=== PATIENT | male | born 1965 | race Caucasian/White ===

== ENCOUNTER 2019-11-28 13:51 | Outpatient (REF) | payer BC, SELFPAY ==
--- NOTE | 2019-11-28 14:00 | CT_ITS ---
EXAMINATION: CT ABDOMEN AND PELVIS WITHOUT AND WITH CONTRAST CLINICAL INFORMATION: Renal cell carcinoma, follow-up. COMPARISON: CT scan of the abdomen and pelvis dated 06/28/2018. TECHNIQUE: Multidetector volumetric imaging was performed of the abdomen and pelvis before and after the IV administration of 85 mL of Omnipaque 350 intravenous contrast. Sagittal and coronal reformatted images were obtained on the technologist's workstation. This CT examination was performed using dose optimization techniques as appropriate, variously including the following: *Automated exposure control *Adjustment of mA and/or kV according to patient size (this includes techniques or standardized protocols for targeted exams where dose is matched to indication/reason for exam; i.e. extremities or head) *Use of iterative reconstruction technique DLP: 796 mGy-cm FINDINGS: LUNG BASES: The visualized lung bases are unremarkable. LIVER, GALLBLADDER, AND BILIARY TREE: Several low-attenuation foci in the liver, some which are too small adequately characterize are not significantly changed. One of the largest is seen anteriorly measuring 0.8 cm without significant change when remeasured (image 12, series 4). The gallbladder/biliary tree are unremarkable. PANCREAS: Unremarkable SPLEEN: Unremarkable ADRENAL GLANDS: Unremarkable KIDNEYS AND URETERS: Status post left nephrectomy. Postsurgical changes are seen in the left renal fossa without abnormality. The right kidney and proximal ureter are unremarkable. BLADDER: Unremarkable GASTROINTESTINAL TRACT: The stomach and small bowel unremarkable. There is no evidence for acute appendicitis. A few scattered diverticuli are seen within the colon without surrounding abnormality. ABDOMINAL WALL: No significant hernia is appreciated. LYMPH NODES: Mildly prominent enlarged retroperitoneal again seen without significant change. A manufacturer representative nodule in the left periaortic region measures a 0.8 cm in short axis (image 52, series 6). VASCULAR: Mild atherosclerosis without significant ectasia. PELVIC VISCERA: Mild prostatic enlargement minimally indenting the inferior wall the urinary bladder without significant change. OSSEOUS STRUCTURES: Multilevel degenerative changes in the thoracolumbar spine, most pronounced at L5-S1 without significant change or suspicious abnormality. IMPRESSION: 1. No significant interval change. No evidence for residual or recurrent disease.
== END 2019-11-28 13:52 | disposition home or self-care (01) ==
LOC: HO.CT 13:51
PROVIDERS: Visit Provider Urology
DX: C64.9 Malignant neoplasm of unspecified kidney, except renal pelvis (principal)
CPT/HCPCS: 74178

== ENCOUNTER → 2020-01-17 10:30 | Outpatient (BNVA) | payer BC, SELFPAY | PROVIDERS: Visit Provider Urology | DX: Z76.89 Persons encountering health services in other specified circumstances (principal) ==

== ENCOUNTER 2020-06-25 09:28 | Outpatient (REF) | payer BC, SELFPAY ==
--- NOTE | ~2020-06-25 | US_ITS ---
EXAMINATION: US RETROPERITONEAL LIMITED (RENAL ONLY) CLINICAL INFORMATION: Malignant neoplasm of kidney. COMPARISON: CT abdomen and pelvis 11/28/2019. Ultrasound renals 12/23/2018 and 07/02/2017. MRI abdomen 07/09/2016. TECHNIQUE: Real-time imaging of the kidneys. FINDINGS: RIGHT KIDNEY: 11.5 x 6.4 x 6.6 cm (SAG x AP x TRV). The kidney is normal in size, contour, and echogenicity. Renal cortical thickness is normal. No calculi or focal parenchymal lesions. No hydronephrosis. LEFT KIDNEY: Removed. US/US renal BI IMPRESSION: Unremarkable right kidney. The left kidney has been surgically removed.
== END 2020-06-25 09:29 | disposition home or self-care (01) ==
LOC: HO.US 09:28
PROVIDERS: Visit Provider Urology
DX: C64.9 Malignant neoplasm of unspecified kidney, except renal pelvis (principal)
CPT/HCPCS: 76775

== ENCOUNTER → 2020-08-01 13:38 | Outpatient (BNVA) | payer BC, SELFPAY | PROVIDERS: PCP Psychiatry & Neurology Psychiatry; Visit Provider Urology ==

== ENCOUNTER 2021-01-11 12:53 | Outpatient (REF) | payer BC, SELFPAY ==
--- NOTE | ~2021-01-11 | XR_ITS ---
EXAMINATION: XR ABDOMEN KUB CLINICAL INDICATION: Malignant neoplasm of the kidney COMPARISON: Previous renal ultrasound June [address] of the abdomen and pelvis November 2019 TECHNIQUE: AP view of the abdomen. FINDINGS: There is stool throughout the colon suggestive of constipation. There are surgical clips projecting over the left renal fossa from previous left nephrectomy. No calcifications are seen. There are degenerative changes of the spine. There is a soft tissue calcification adjacent to the left greater trochanter. XR/XR KUB IMPRESSION: Surgical clips from previous left nephrectomy. Constipation.
== END 2021-01-11 12:54 | disposition home or self-care (01) ==
LOC: HO.XRAY 12:53
PROVIDERS: PCP Internal Medicine; Visit Provider Urology
DX: C64.9 Malignant neoplasm of unspecified kidney, except renal pelvis (principal)
CPT/HCPCS: 74018

== ENCOUNTER → 2021-01-29 14:57 | Outpatient (BNVA) | payer BC, SELFPAY | PROVIDERS: PCP Psychiatry & Neurology Psychiatry; Visit Provider Urology ==

== ENCOUNTER 2021-07-29 16:17 | Outpatient (REF) | payer BC, SELFPAY ==
--- NOTE | ~2021-07-29 | US_ITS ---
EXAMINATION: US RETROPERITONEAL LIMITED (RENAL ONLY) CLINICAL INFORMATION: Malignant neoplasm of unspecified kidney. Post left nephrectomy 2016 COMPARISON: X-ray KUB 01/11/2021, renal ultrasound 06/25/2020, renal ultrasound 12/23/2018, CT abdomen and pelvis 11/28/2019, MRI abdomen 07/09/2016 TECHNIQUE: Real-time imaging of the kidney. FINDINGS: RIGHT KIDNEY: 11.5 x 5.9 x 6.6 cm (SAG x AP x TRV). The kidney is normal in size, contour, and echogenicity. Renal cortical thickness is normal. No calculi or focal parenchymal lesions. No hydronephrosis. LEFT KIDNEY: Surgically absent. No soft tissue mass is seen in the left renal fossa. US/US renal BI IMPRESSION: Normal right kidney.
== END 2021-07-29 16:18 | disposition home or self-care (01) ==
LOC: HO.US 16:17
PROVIDERS: Visit Provider Urology
DX: C64.9 Malignant neoplasm of unspecified kidney, except renal pelvis (principal); Z90.5 Acquired absence of kidney
CPT/HCPCS: 76775

== ENCOUNTER 2021-11-23 12:18 | Emergency (ER) | payer BC, SELFPAY ==
[2021-11-23 12:24] VITALS: BP 160/96; PULSE 73; RESP 18; TEMP 36.8; O2SAT 98; BMI 27.8
[2021-11-23 12:51] VITALS: BP 148/96; PULSE 65; RESP 14; TEMP 36.6; O2SAT 92
--- NOTE | 2021-11-23 13:04 | ED.GENADULT ---
HPI - General Adult General Chief complaint: General Medical Stated complaint: Diff Breathing Time Seen by Provider: 11/23/21 12:45 Source: patient Mode of arrival: ambulatory Limitations: no limitations History of Present Illness HPI narrative: 56 year old male with a PMH significant for asthma, renal cancer, MD (2012) and HTN, he presenting for difficulty breathing, and heart burn. 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 The patient has a history of heroin use and is currently on suboxone. The patient reports one hour ago he snorted heroin, and he thought he might've been overdosing. He reports after using he experiences this heart burn and it goes away with Pepcid, and does not radiate anywhere. He report he is not currently experiencing this burning sensation. The patient endorses dyspnea, wheezing and heart burn. He denies chest pain, pleuritic chest pain, or radiating pain. MD complaint: Drug uses with heartburn/shortness of breath/wheezing Onset (ago): hour(s) (1) Location: abdomen Radiation: non-radiation Severity: mild Quality: burning Pain Consistency: intermittent (with heroin use ) Relieving factors: other (pepcid ) Associated symptoms: shortness of breath Treatments prior to arrival: none Related Data Home Medications Medication Instructions Recorded Confirmed albuterol sulfate 90 mcg/actuation 1 puff PO Q6H PRN wheezing 01/17/20 aerosol inhaler atorvastatin 80 mg tablet 80 mg PO DAILY 01/17/20 buprenorphine 8 mg-naloxone 2 mg 10 mg sublingual DAILY 01/17/20 sublingual film clonidine HCl 0.1 mg tablet mg PO 01/17/20 famotidine 20 mg tablet 20 mg PO Q12H 01/17/20 ipratropium 0.5 mg-albuterol 3 mg ml inhalation QID PRN wheezing 01/17/20 (2.5 mg base)/3 mL nebulization soln lisinopril 10 mg tablet 10 mg PO DAILY 01/17/20 metoprolol tartrate 50 mg tablet 50 mg PO BID 01/17/20 sildenafil 100 mg tablet 100 mg PO intercourse 01/17/20 Previous Rx's Medication Instructions Recorded sildenafil (pulm.hypertension) 20 20 mg PO .PRN PRN sexual activity 11/19/21 mg tablet 30 days #30 tabs albuterol sulfate 90 mcg/actuation 1 inh inhalation Q4-6H PRN 11/23/21 breath activated powder inhaler shortness of breath or wheezing #1 ea azithromycin 250 mg tablet See Rx Instructions PO .COMPLEX #6 11/23/21 tabs famotidine 20 mg tablet (Pepcid) 20 mg PO BID gerd #10 tabs 11/23/21 prednisone 20 mg tablet 40 mg PO DAILY Asthma exacerbation 11/23/21 5 days #10 tabs Allergies Allergy/AdvReac Type Severity Reaction Status Date / Time No Known Allergies Allergy Verified 08/20/21 07:36 Review of Systems Review of Systems: Constitutional : No Fever, No Chills, No Night Sweats, No Fatigue, No Malaise ENT/Mouth : No Hearing loss, No Ear Pain, No Nasal Congestion, No Sinus Pain, No Hoarseness, No sore throat, No Rhinorrhea, No Swallowing Difficulty Eyes: No Eye Pain, No Swelling, No Redness, No Foreign Body, No Discharge, No Vision Changes Cardiovascular : No Chest Pain, No SOB, + Dyspnea on Exertion, No Orthopnea, No Edema, No Palpitations Respiratory : No Cough, No Sputum, + Wheezing, No Smoke Exposure, No Dyspnea Gastrointestinal : No Nausea, No Vomiting, No Diarrhea, No Constipation, No abdominal Pain, No Hematochezia, No Melena Genitourinary : no irregular bleeding, No Dysuria, No Urinary Frequency, No Hematuria, No Urinary Incontinence, No Urgency, No Flank Pain, No Urinary Flow Changes, No Hesitancy Musculoskeletal : No joint pain, No Myalgias, No Joint Swelling Skin : No Skin Lesions, No rash Neuro : No Weakness, No Numbness, No Paresthesias, No Loss of Consciousness, No Dizziness, No Headache Psych : + Anxiety/Panic Heme/Lymph: No Bruising, No Bleeding,No Lymphadenopathy Endocrine : No Polyuria, No Polydipsia, No Temperature Intolerance Yes all other systems are reviewed and are negative [facility] Past Medical History Attestation statement: The following information was validated with the patient. Source: old records reviewed and nursing notes reviewed Medical History Accelerated hypertension Erectile dysfunction Hyperlipidemia Renal cancer Surgical History History of surgery Social History Social History Advance Directives: Yes Advance Directives Information Provided: No Advance Directives on File: No Physical Exam ED Vital Signs: Vital Signs - 24 hr 11/23/21 12:24 11/23/21 12:51 11/23/21 14:08 Temperature 98.2 F 97.8 F 97.7 F Pulse Rate 73 65 63 Respiratory Rate 18 14 93 H Blood Pressure 160/96 H 148/96 H 135/85 Pulse Oximetry 98 92 94 Oxygen Delivery Method Room Air Room Air Room Air 11/23/21 15:10 Temperature Pulse Rate 73 Respiratory Rate 16 Blood Pressure Pulse Oximetry Oxygen Delivery Method BMI result Body Mass Index 27.8 vital signs have been reviewed as normal and appeared to be correct. Blood pressure 160/96. Heart rate normal. Respiration rate normal. Temperature normal. Oxygen saturation normal. Appearance: Alert. Oriented X3. No acute distress. Head: Normal external exam. Normocephalic. Atraumatic. Eyes: Pinpoint fixed pupiles b/t. EOMI. Conjunctiva and sclera normal. Eyelids normal. ENT: Moist mucous membranes. Normal voice. No trismus noted. No drooling noted. No muffled voice noted. Neck: Normal inspection. Neck supple. FROM. No tracheal deviation noted. No crepitus is noted. No meningeal signs. No neck mass noted. No signs of trauma noted. CVS: Normal heart rate and rhythm. Heart sound normal. Pulses normal throughout. No murmurs/rales/gallops. Respiratory: No respiratory distress. Painless inspiration. Breath sounds normal. + audible wheezing, No stridor/rales/rhonchi noted. Chest nontender. No crepitus is noted. No signs of trauma noted. No accessory muscle usage noted or decreased air movement noted. No signs of trauma. Abdomen: Soft and nontender. No distention noted. No organomegaly noted. No visible injury noted. Back: No CVA tenderness. Full range of motion noted. Nontender. No signs of trauma. Patient neuro intact bilaterally and distally on all 4 extremities. Patient's reflexes intact bilaterally and distally on all 4 extremities. No rashes/lesion/induration/fluctuance or signs of infection noted. Skin: Skin warm and dry. Normal skin color. Normal skin turgor. No rashes/lesions/lacerations noted. Extremities: No lower extremity edema. No calf tenderness is noted. Extremities exhibit normal range of motion and nontender. Neuro: Oriented X 3. No motor deficit. No sensory deficit. Reflexes normal. Normal steady gait. No focal neuro deficits noted. CN's II-XII intact bilaterally? Vascular: + 2 radial pulses b/l. Normal cap refill. No cyanosis noted to upper extremity nails. Course Course Course Narrative: 12:45pm -56 year old male with a PMH significant for asthma, renal cancer, MD (2012) and HTN, he presenting for difficulty breathing, and heart burn. The patient has a history of heroin use and is currently on suboxone.The patient reports one hour ago he snorted heroin, and he though he was OD. He reports after using he experiences this heart burn and it goes away with Pepcid, and does not radiate anywhere. He report he is not currently experiencing this burning sensation. The patient endorses dyspnea, wheezing and heart burn. He denies chest pain, pleuritic chest pain, or radiating pain. Exam: Audible wheezing noted, pupils pinpoint and fixed. Plan:EKG, CXR, UA drug screen, PT/INR, Ethanol, CPK, CBC with diff, CMP, Troponin, Meds: Albuterol, Pepcid, Prednisone, Albuterol Reevaluation(s) Reevaluation #1: CXR offered and decliend by patient, patient states I don't need a chest x-ray, I don't have pneumonia Time: 13:31 Reevaluation #2: - labs reviewed and patient troponin 49.9. Otherwise all other labs are within normal limits. - ETOH level negative. - Patient continues to refuse chest x-ray. - EKG normal sinus rhythm with sinus arrhythmia with ventricular rate of 72 with a normal OH interval normal QRS duration with QT/QTC interval. No acute ischemic change are noted. Similar and improve when compared to prior EKG on 07/09/2016. Time: 16:59 Reevaluation #3: - Initial Troponin 49.9; 3 hour Troponin 42.4 therefore negative delta. - will DC home with antibiotics and symptomatic treatment for the patient's asthma/GERD. Along with instructions to not use any drugs. Patient is not interested in detox. Plan: d/c home Time: 18:00 Medical Decision Making Medical Records Medical records reviewed: Yes I reviewed the patient's medical records. Lab Data Lab results reviewed: Yes I reviewed the patient's lab results. Result diagrams: 11/23/21 13:30 11/23/21 13:30 Labs: Lab Results 11/23/21 11/23/21 11/23/21 Range/Units 13:30 13:30 13:30 WBC 9.0 (4.8-10.8) X10*3/uL RBC 5.31 (4.60-5.80) X10*6/uL Hgb 15.7 (14.0-18.0) g/dl Hct 47.4 (42.0-52.0) % MCV 89.3 (80.0-98.0) fL MCH 29.6 (27.0-33.0) pg MCHC 33.1 (31.0-36.0) g/dl RDW 12.9 (11.0-16.0) % Plt Count 210 (160-400) X10*3/uL MPV 9.9 (9.4-12.4) fL Immature Gran % (Auto) 0.2 (0.0-0.4) % Neut % (Auto) 80.6 H (45-73) % Lymph % (Auto) 11.5 L (20-40) % Lander % (Auto) 4.9 (2-11) % Eos % (Auto) 2.1 (0-4) % Baso % (Auto) 0.7 (0-2) % Lymph # (Auto) 1.0 L (1.2-4.9) X10*3/uL Lander # (Auto) 0.4 (0.1-1.2) X10*3/uL Eos # (Auto) 0.2 (0.0-0.4) X10*3/uL Baso # (Auto) 0.1 (0.0-0.2) X10*3/uL Abs Immat Gran (auto) 0.02 (0.00-0.03) X10*3/uL Absolute Neuts (auto) 7.2 (2.0-8.3) x10*3/uL Absolute Nucleated RBC 0.000 (0.0-0.012) X10*3/uL Nucleated RBC % (auto) 0.0 (0.0-0.2) /100WBC PT 11.9 (10.0-13.1) SEC INR 1.0 (0.9-1.1) Sodium 141 (135-145) mmol/L Potassium 4.5 (3.3-5.1) mmol/L Chloride 102 (96-108) mmol/L Carbon Dioxide 29 (22-29) mmol/L Anion Gap 15 (12-20) BUN 15 (9-16) mg/dL Creatinine 1.05 (0.5-1.4) mg/dL Estim Creat Clear Calc 88.3 Estimated GFR > 60 Random Glucose 101 (60-115) mg/dL Calcium 9.6 (8.4-10.2) mg/dL Magnesium 2.0 (1.6-2.6) mg/dL Total Bilirubin 0.7 (0.0-1.0) mg/dL AST 28 (5-37) U/L ALT 35 (0-40) U/L Alkaline Phosphatase 91 (39-117) U/L Total Creatine Kinase 133 (38-174) U/L Troponin I High Sens (<3.5-35.0) ng/L Total Protein 7.5 (6.5-8.0) g/dL Albumin 4.7 (3.5-5.0) g/dL Ethyl Alcohol < 10 mg/dL 11/23/21 11/23/21 Range/Units 13:30 17:30 WBC (4.8-10.8) X10*3/uL RBC (4.60-5.80) X10*6/uL Hgb (14.0-18.0) g/dl Hct (42.0-52.0) % MCV (80.0-98.0) fL MCH (27.0-33.0) pg MCHC (31.0-36.0) g/dl RDW (11.0-16.0) % Plt Count (160-400) X10*3/uL MPV (9.4-12.4) fL Immature Gran % (Auto) (0.0-0.4) % Neut % (Auto) (45-73) % Lymph % (Auto) (20-40) % Lander % (Auto) (2-11) % Eos % (Auto) (0-4) % Baso % (Auto) (0-2) % Lymph # (Auto) (1.2-4.9) X10*3/uL Lander # (Auto) (0.1-1.2) X10*3/uL Eos # (Auto) (0.0-0.4) X10*3/uL Baso # (Auto) (0.0-0.2) X10*3/uL Abs Immat Gran (auto) (0.00-0.03) X10*3/uL Absolute Neuts (auto) (2.0-8.3) x10*3/uL Absolute Nucleated RBC (0.0-0.012) X10*3/uL Nucleated RBC % (auto) (0.0-0.2) /100WBC PT (10.0-13.1) SEC INR (0.9-1.1) Sodium (135-145) mmol/L Potassium (3.3-5.1) mmol/L Chloride (96-108) mmol/L Carbon Dioxide (22-29) mmol/L Anion Gap (12-20) BUN (9-16) mg/dL Creatinine (0.5-1.4) mg/dL Estim Creat Clear Calc Estimated GFR Random Glucose (60-115) mg/dL Calcium (8.4-10.2) mg/dL Magnesium (1.6-2.6) mg/dL Total Bilirubin (0.0-1.0) mg/dL AST (5-37) U/L ALT (0-40) U/L Alkaline Phosphatase (39-117) U/L Total Creatine Kinase (38-174) U/L Troponin I High Sens 49.9 H 42.2 H (<3.5-35.0) ng/L Total Protein (6.5-8.0) g/dL Albumin (3.5-5.0) g/dL Ethyl Alcohol mg/dL ECG Data Attestation: I personally reviewed and interpreted this ECG as follows: Prior ECG tracings: available for review Interpretation: EKG normal sinus rhythm with sinus arrhythmia with ventricular rate of 72 with a normal OH interval normal QRS duration with QT/QTC interval. No acute ischemic change are noted. Similar and improve when compared to prior EKG on 07/09/2016. Discharge Plan Discharge Clinical Impression: Asthma exacerbation, Heroin abuse, GERD (gastroesophageal reflux disease) Patient Disposition: Home, Self-Care Instructions: Asthma (ED), Gastroesophageal Reflux Disease (ED) Additional Instructions: You should not use any drugs you can from using drugs. Return if any new or worsening symptoms. Follow up with her primary care provider. Prescriptions: New azithromycin 250 mg tablet See Rx Instructions PO .COMPLEX Qty: 6 0RF Rx Instructions: take 500 mg today (day 1), then 250 mg for 4 days (days 2-5) prednisone 20 mg tablet 40 mg PO DAILY 5 Days Qty: 10 0RF albuterol sulfate 90 mcg/actuation aerosol powdr breath activated 1 inh inhalation Q4-6H PRN (Reason: shortness of breath or wheezing) Qty: 1 0RF famotidine [Pepcid] 20 mg tablet 20 mg PO BID Qty: 10 0RF No Action sildenafil (pulm.hypertension) 20 mg tablet 20 mg PO .PRN PRN (Reason: sexual activity) 30 Days Qty: 30 0RF lisinopril 10 mg tablet 10 mg PO DAILY clonidine HCl 0.1 mg tablet PO buprenorphine-naloxone 8-2 mg film 10 mg sublingual DAILY metoprolol tartrate 50 mg tablet 50 mg PO BID atorvastatin 80 mg tablet 80 mg PO DAILY albuterol sulfate 90 mcg/actuation HFA aerosol inhaler 1 puff PO Q6H PRN (Reason: wheezing) famotidine 20 mg tablet 20 mg PO Q12H sildenafil 100 mg tablet 100 mg PO ipratropium-albuterol 0.5 mg-3 mg(2.5 mg base)/3 mL solution for nebulization inhalation QID PRN (Reason: wheezing) Referrals: Cisco Wright III, MD [Primary Care Provider] - 2 days
--- NOTE | 2021-11-23 13:07 | ECG_ITS ---
Test Reason : SHORTNESS OF BREATH Blood Pressure : / mmHG Vent. Rate : 072 BPM Atrial Rate : 072 BPM P-R Int : 180 ms QRS Dur : 112 ms QT Int : 394 ms P-R-T Axes : 063 032 049 degrees QTc Int : 431 ms Normal sinus rhythm with sinus arrhythmia Normal ECG When compared with ECG of 09-JUL-2016 02:18, No significant change was found Referred By: Steffi Pink Electronically Signed By:BRITTNEY BONILLA
[2021-11-23] MEDS: Famotidine 20 MG TABLET PO (13:19)
[2021-11-23] MEDS: predniSONE 20 MG TABLET 60 MG PO (13:19)
[2021-11-23 13:38] LABS: MANUAL DIFF FLAG NO
[2021-11-23 13:43] LABS: Basophils Absolute Auto 0.1 X10*3/uL (0.0-0.2); Basophils Percent Auto 0.7 % (0-2); Eosinophils Absolute Auto 0.2 X10*3/uL (0.0-0.4); Eosinophils Percent Auto 2.1 % (0-4); Hematocrit 47.4 % (42.0-52.0); Hemoglobin 15.7 g/dl (14.0-18.0); Imm Gran Abs Auto 0.02 X10*3/uL (0.00-0.03); Imm Gran Pct Auto 0.2 % (0.0-0.4); Lymphocytes Percent Auto 11.5 % (20-40); Mean Corpuscular HGB Conc 33.1 g/dl (31.0-36.0); Mean Corpuscular Hemoglobin 29.6 pg (27.0-33.0); Mean Corpuscular Volume 89.3 fL (80.0-98.0); Mean Platelet Volume 9.9 fL (9.4-12.4); Monocytes Absolute Auto 0.4 X10*3/uL (0.1-1.2); Monocytes Percent Auto 4.9 % (2-11); Neutrophils Absolute Auto 7.2 x10*3/uL (2.0-8.3); Neutrophils Percent Auto 80.6 % (45-73); Platelet Count 210 X10*3/uL (160-400); Red Blood Count 5.31 X10*6/uL (4.60-5.80); Red Cell Distribution Width 12.9 % (11.0-16.0)
[2021-11-23 13:46] LABS: Prothrombin Time 11.9 SEC (10.0-13.1)
[2021-11-23 14:00] LABS: Alanine Aminotransferase 35 U/L (0-40); Albumin Level 4.7 g/dL (3.5-5.0); Alkaline Phosphatase 91 U/L (39-117); Anion Gap 15 (12-20); Aspartate Amino Transferase 28 U/L (5-37); Bilirubin Total 0.7 mg/dL (0.0-1.0); Blood Urea Nitrogen 15 mg/dL (9-16); Calcium 9.6 mg/dL (8.4-10.2); Carbon Dioxide 29 mmol/L (22-29); Chloride 102 mmol/L (96-108); Creatinine Clr Calc Pharmacy 88.3; Estimated Glomerular Filt Rate > 60; Ethanol < 10 mg/dL; Glucose Random 101 mg/dL (60-115); Potassium 4.5 mmol/L (3.3-5.1); Sodium 141 mmol/L (135-145); Total Protein 7.5 g/dL (6.5-8.0)
[2021-11-23 14:04] LABS: Troponin-I High Sensitivity 49.9 ng/L (<3.5-35.0)
[2021-11-23 14:08] VITALS: BP 135/85; PULSE 63; RESP 93; TEMP 36.5; O2SAT 94
--- NOTE | 2021-11-23 14:48 | PC.NURSE ---
patient refused x2 and labs nurse and doctor aware
[2021-11-23] MEDS: Albuterol Sulfate 7.5 MG, Albuterol Sulfate (0.083%) 2.5 MG 10 MG INHALE (15:06)
[2021-11-23 15:10] VITALS: PULSE 73; RESP 16; O2SAT 91
[2021-11-23 17:55] LABS: Troponin-I High Sensitivity 42.2 ng/L (<3.5-35.0)
--- NOTE | 2021-11-23 18:22 | PC.NURSE ---
patient a/ox4 . went over discharge instructions as ordered by dennis . no questions at this time . patient to return to [facility] if symptoms worsen .
== END 2021-11-23 18:23 | disposition home or self-care (01) ==
PROVIDERS: Physician Assistant Medical; Emergency Provider Emergency Medicine; PCP Internal Medicine
DX: J45.901 Unspecified asthma with (acute) exacerbation (principal); F19.10 Other psychoactive substance abuse, uncomplicated; K21.9 Gastro-esophageal reflux disease without esophagitis; E78.5 Hyperlipidemia, unspecified; F11.20 Opioid dependence, uncomplicated; C64.9 Malignant neoplasm of unspecified kidney, except renal pelvis; Z79.02 Long term (current) use of antithrombotics/antiplatelets; Z79.899 Other long term (current) drug therapy
CPT/HCPCS: 36415; 80053; 82077; 82550; 83735; 84484; 85025; 85610; 93005; 94640; 99284

== ENCOUNTER 2022-01-23 10:21 | Outpatient (REF) | payer BC, SELFPAY ==
--- NOTE | ~2022-01-23 | US_ITS ---
EXAMINATION: US RETROPERITONEAL LIMITED (RENAL ONLY) CLINICAL INFORMATION: Malignant neoplasm of unspecified kidney except renal pelvis. COMPARISON: Renal ultrasound 07/29/2021 and 06/25/2020. X-ray KUB 01/11/2021. CT abdomen and pelvis 11/28/2019. MRI abdomen 07/09/2016. TECHNIQUE: Real-time imaging of the solitary right kidney. FINDINGS: RIGHT KIDNEY: 11.5 x 6.6 x 6.0 cm (SAG x AP x TRV). The kidney is normal in size, contour, and echogenicity. Renal cortical thickness is normal. No calculi or focal parenchymal lesions. No hydronephrosis. LEFT KIDNEY: Surgically absent. US/US renal BI IMPRESSION: 1. Unremarkable right kidney. 2. Left kidney surgically absent.
== END 2022-01-23 10:22 | disposition home or self-care (01) ==
LOC: HO.US 10:21
PROVIDERS: Visit Provider Urology
DX: C64.9 Malignant neoplasm of unspecified kidney, except renal pelvis (principal)
CPT/HCPCS: 76775

== ENCOUNTER → 2022-02-20 08:46 | Outpatient (BNVA) | payer BC, SELFPAY | PROVIDERS: PCP Internal Medicine; Visit Provider Urology | DX: N52.01 Erectile dysfunction due to arterial insufficiency (principal) ==

== ENCOUNTER 2023-01-23 10:26 | Outpatient (REF) | payer BC, SELFPAY ==
--- NOTE | ~2023-01-23 | US_ITS ---
EXAMINATION: US RETROPERITONEAL LIMITED (RENAL ONLY) CLINICAL INFORMATION: Malignant neoplasm of unspecified kidney, except renal pelvis. COMPARISON: Renal ultrasound 01/23/2022 and 07/29/2021. X-ray KUB 01/11/2021. CT abdomen and pelvis 11/28/2019. MRI abdomen 07/09/2016. TECHNIQUE: Real-time imaging of the solitary right kidney. FINDINGS: RIGHT KIDNEY: 11.3 x 6.3 x 5.9 cm (SAG x AP x TRV). The kidney is normal in size, contour, and echogenicity. Renal cortical thickness is normal. No calculi or focal parenchymal lesions. No hydronephrosis. LEFT KIDNEY: Surgically absent. US/US renal BI IMPRESSION: Status post left nephrectomy with normal remaining right kidney.
--- NOTE | ~2023-01-23 | XR_ITS ---
EXAMINATION: XR CHEST CLINICAL INFORMATION: Malignant neoplasm of kidney. COMPARISON: Chest radiograph dated 07/06/2019. TECHNIQUE: Frontal view of the chest was obtained. FINDINGS: No significant abnormality is noted involving the heart, lungs, mediastinum, bony thorax or soft tissues. No mass, nodule, thoracic lymphadenopathy or pleural effusion is noted. XR/XR chest 1V IMPRESSION: Unremarkable examination.
== END 2023-01-23 10:27 | disposition home or self-care (01) ==
LOC: HO.US 10:26
PROVIDERS: PCP Internal Medicine; Visit Provider Urology
DX: C64.9 Malignant neoplasm of unspecified kidney, except renal pelvis (principal)
CPT/HCPCS: 71045; 76775

== ENCOUNTER 2023-03-23 10:55 | Outpatient (AMB) | payer BC, SELFPAY ==
--- NOTE | 2023-03-23 10:56 | A.OFFVIS_ITS ---
Intake Intake Visit Reasons: 1Y US/KUB(SET) Intake Note: Patient is present for a follow-up on Ultrasound & KUB Results: Urology Medication: Sildenafil Blood Thinner: None Power Lineworker Required: No Accompanied by: Self / Same As Patient Allergies No Known Allergies Allergy (Verified 03/23/23 10:56) HPI HPI Comments History of Present Illness Details Telehealth--03/23/23--Ignacio is a 57-year-old male. History of left nephrectomy 09/2016 for stage T3 renal cancer. He was last seen by Dr. Villegas last year. He had renal ultrasound and CXR done. I have reviewed results. Absent left kidney, right kidney within normal limits. CXR - normal. He denies any irritative voiding symptoms. He denies gross hematuria or abdominal pain. He is prescribed generic viagra for ED. Plan will continue to monitor. Follow-up in 1 year with renal ultrasound. Review of chart: Renal cancer T3 kidney 09/2016 left nephrectomy with neoadjuvant chemotherapy oral They present for continued followup and management, left side, renal cancer. The renal mass was diagnosed incidentally, during evaluation for, GI symptoms 07/09 at [facility] [place] Imaging included 07/09 , a CT (computed tomography) scan of the abdomen/pelvis, an MRI of the abdomen - 11 cm x 15 cm x 11 cm mass on the left kidney. Left renal vein with extension across to IVC. No evidence of extension up IVC. Shoddy nodes around the kidney, central area with stellate scarring. 07/09 , an MRI of the abdomen - similar. NAD Chest and head CT 12/09 , a CT (computed tomography) scan of the abdomen/pelvis, no recurrence 07/10 - NAD Renal US 01/10 - CT Abdo ok, chest - suggest f/u in 3m 07/11 CT Abdo and chest both clear. 01/11 , a renal ultrasound, NAD, CXR NAD. - CT Abdo and chest. Clear. Does have noted 0.8 cm and hemangioma and liver - 12/12 CT scan normal - 07/13 renal ultrasound no abnormality detected, 07/14 renal ultrasound normal, 02/13 renal ultrasound right kidney normal Prior treatment(s) included 10/09 left , nephrectomy, IVC thrombectomy Dr Radha Cali. Staging of initial cancer 10/09 T3, , with vena cava involvement, without metastasis. The diagnosis was renal cell carcinoma, Grade III. [facility] Medical History Accelerated hypertension Erectile dysfunction Hyperlipidemia Renal cancer Surgical History History of surgery Results Reviewed Results Reviewed: Date of Service: 01/23/23 EXAMINATION: US RETROPERITONEAL LIMITED (RENAL ONLY) CLINICAL INFORMATION: Malignant neoplasm of unspecified kidney, except renal pelvis. COMPARISON: Renal ultrasound 01/23/2022 and 07/29/2021. X-ray KUB 01/11/2021. CT abdomen and pelvis 11/28/2019. MRI abdomen 07/09/2016. TECHNIQUE: Real-time imaging of the solitary right kidney. FINDINGS: RIGHT KIDNEY: 11.3 x 6.3 x 5.9 cm (SAG x AP x TRV). The kidney is normal in size, contour, and echogenicity. Renal cortical thickness is normal. No calculi or focal parenchymal lesions. No hydronephrosis. LEFT KIDNEY: Surgically absent. IMPRESSION: Status post left nephrectomy with normal remaining right kidney. Date of Service: 01/23/23 EXAMINATION: XR CHEST CLINICAL INFORMATION: Malignant neoplasm of kidney. COMPARISON: Chest radiograph dated 07/06/2019. TECHNIQUE: Frontal view of the chest was obtained. FINDINGS: No significant abnormality is noted involving the heart, lungs, mediastinum, bony thorax or soft tissues. No mass, nodule, thoracic lymphadenopathy or pleural effusion is noted. IMPRESSION: Unremarkable examination. Assessment & Plan Assessment & Plan (1) Erectile dysfunction due to arterial insufficiency: Code(s): N52.01 - Erectile dysfunction due to arterial insufficiency (2) Renal cancer: Code(s): C64.9 - Malignant neoplasm of unspecified kidney, except renal pelvis Plan Twelve month follow-up imaging Patient Instructions: The patient had an opportunity to ask questions regarding treatment plan. All questions were answered. Imaging, Laboratory studies and physical exam results were discussed and reviewed in detail. No major barriers to understanding were identified. The patient expressed understanding and agreement with the above treatment plan. The patient is aware they should contact our office by phone for worsening of their current condition or the appearance of new symptoms. Compliance is encouraged with any medications and followup testing that is ordered. It is a privilege to be allowed the opportunity to participate in the urologic care of your patient. If you have any questions or concerns regarding treatment for the above conditions please do not hesitate to contact me. The office telephone contact is [phone]. This note is constructed in part using voice recognition software. While every effort has been made to ensure accuracy human resources director errors may have been included. Yours sincerely, Jesse Ramírez MD Telehealth Telehealth Location of provider rendering services: practice address Location of patient: address on file Patient Identification confirmed using: Name, : Yes Telehealth method: voice only Patient verbally consented to treatment: Yes Patient verbally consented to billing insurance company: Yes Patient informed of any privacy concerns related to visit: Yes Minutes spent on Phone/Video with Pt.: 15 Coding Level of Care Code Tele Est Pt Level 3 (52053) Diagnoses Erectile dysfunction due to arterial insufficiency N52.01 Renal cancer C64.9
== END 2023-03-23 13:08 | disposition home or self-care (01) ==
LOC: HO.HUSH 10:55
PROVIDERS: PCP Internal Medicine; Visit Provider Urology
DX: N52.01 Erectile dysfunction due to arterial insufficiency (principal); C64.9 Malignant neoplasm of unspecified kidney, except renal pelvis
CPT/HCPCS: 99442

== ENCOUNTER → 2023-03-23 10:55 | Outpatient (BNVA) | payer BC, SELFPAY | PROVIDERS: PCP Internal Medicine; Visit Provider Urology ==

== ENCOUNTER 2024-04-12 11:22 | Outpatient (REF) | payer BC, SELFPAY ==
--- NOTE | ~2024-04-12 | US_ITS ---
CLINICAL HISTORY: C64.9 - Malignant neoplasm of unspecified kidney, except renal pelvis US Renal Comparison: None Findings: The right kidney is normal in size, measuring 12.4 cm in length. The left kidney is not visualized. Right renal cortical echogenicity is within normal limits. There is no evidence of hydronephrosis, mass, or nephrolithiasis. IMPRESSION: 1. Normal sonographic appearance of the right kidney. 2. Absent left kidney. This document has been electronically signed by: Deonna Baca on 04/13/2024 09:27:39
--- OUTSIDE RECORDS SUMMARY | 2024-04-12 12:40 | XMS_ITS | Clinical Summary ---
Author Organization [facility] Address [address] [place] [address] Phone Care Team Providers Care Electronic Heat Seal Operator Name Role Phone Cisco Wright MD Primary Care Provider [phone] Allergies No known active allergies Medications lisinopriL (PRINIVIL,ZEST RIL) 10 mg tablet Take 1 tablet (10 mg total) by mouth 1 (one) time each day. 4 Active nitroglycerin (NITROSTAT) 0.[address] 1 tablet (0.4 mg total) under the tongue every 5 (five) minutes if needed. 2 Active buprenorphine- naloxone (SUBOXONE) 2-0.[address] 1 mg of opioid under the tongue daily. 1 Active sildenafil (REVATIO) 20 mg tablet TAKE 1 TABLET BY MOUTH ONCE DAILY NEEDED FOR SEXUAL ACTIVITY FOR 30 DAYS 1 Active aspirin 81 mg EC tablet Take 1 tablet (81 mg total) by mouth 1 (one) time each day. Active atorvastatin (LIPITOR) 80 mg tablet Take 1 tablet (80 mg total) by mouth at bedtime. 90 tablet 3 5 Active metoprolol succinate (Toprol XL) 100 mg 24 hr tablet Take 1 tablet (100 mg total) by mouth 1 (one) time each day. Do not crush or chew. 90 each 3 5 026 Active albuterol HFA (PROAIR HFA ; PROVENTIL HFA ; VENTOLIN HFA) 90 mcg/actuation inhaler Inhale 2 puffs by mouth every 6 (six) hours if needed for wheezing (coughing). 6.7 g 2 5 Active hydrOXYzine HCL (ATARAX) 25 mg tablet TAKE 1 TABLET BY MOUTH THREE TIMES DAILY NEEDED FOR ANXIETY 45 tablet 3 5 Active hydrOXYzine HCL (ATARAX) 25 mg tablet Take 1 tablet (25 mg total) by mouth 3 (three) times a day if needed for anxiety (for up to 360 days). 4 025 Discontinued Active Problems Problem Noted Date Diagnosed Date Coronary artery disease invo lving moapa coronary artery of moapa heart without angina pectoris 03/31/2024 Overview (03/31/2024): -NSTEMI in 2011 with drug-eluting stent to the middle left circumflex; during that cath, left main was noted to be normal, there was moderate disease in the LAD territory graded as 50 to 60%, minor luminal irregularities of the remaining circumflex territory, minor luminal irregularities of the RCA - Repeat cath in 2016 when the patient presented to [facility] with a non-ST elevation OK that was ultimately thought to be a type II demand mediated OK; cath showed no obstructive coronary disease-interestingly there is no report documented of this cath in the [facility] record but I was able to independently review the films Assessment & Plan (03/31/2024 1:20 PM EST): No recurrent anginal symptoms. The atypical symptoms he is experiencing do not sound cardiac in nature. He maintains an excellent functional capacity. Continue high- dose statin, aspirin, metoprolol at current dose. Opiate withdrawal 12/24/2017 Hypertension 07/17/2017 Overview (02/07/2024): Last Assessment & Plan: The patient's arrival blood pressure is 160/110, on repeat by me 164/96. The patient explains this because he spent the day in court and was highly emotional and upset. He also states he is only sleeping 4 hours at night. 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 He also states his diet is poor, he uses salt on his food. Discussed the rationale why he should be avoiding this. He takes 15,000 steps at least a day. Continue exercise weight loss efforts and improve diet. Assessment & Plan (03/31/2024 1:22 PM EST): Suboptimally controlled on today's visit. Recommended home blood pressure checks. Recommend low-sodium diet. Continue current lisinopril and metoprolol for now. Hypercholesteremia 07/17/2017 Overview (02/07/2024): Last Assessment & Plan: The patient's lipids were last assessed in April 2021 he has since been asked to provide labs. He states he will do so this week. Triglycerides were 219. LDL was 53. Again discussed the importance of optimizing his dietary intake. Continue maximum statin therapy he is not describing unusual myalgia. Assessment & Plan (03/31/2024 1:20 PM EST): Continue high-dose statin. Last lipid profile showed excellently controlled lipids. Renal cell cancer 07/17/2017 Overview (02/07/2024): Diagnosed incidentially 06/2016. S/p left nephrectomy, IVC thrombectomy at [facility] for vena cava involvement without metastatsis. Follows with [facility] Surveillance CT scan from June 2018 did not show any evidence of recurrence or metastatic disease Substance abuse 08/17/2015 Anxiety and depression 12/07/2014 History of non-ST elevation myocardial infarctio n (NSTEMI) 07/27/2012 Overview (02/07/2024): With PCI 2012 Last Assessment & Plan: Given the patient's diagnosis of coronary disease we discussed the importance of risk factor modification. We must improve his blood pressure. His heart rate is well controlled actually bradycardic in the 50s. He needs to stop vaping. In addition he needs to improve his dietary intake. Fortunately with walking 15,000 steps per day he is experiencing no anginal symptoms. Continue on beta-puja, maximum statin therapy, low-dose aspirin. We will be updating echocardiogram, this was actually ordered in 2018 but was never done. Certainly if he believes he is having any anginal symptoms he needs to seek emergency attention and/or notify us for additional testing. He did ask for me to review the proper usage of nitroglycerin though he states he never uses it. ED (erectile dysfunction) 04/07/2005 Asthma 04/07/2005 Encounters Date Type Department Care Team Description 03/10/2024 10:50 AM EST Office Visit [facility] [address] [place] [address] Elise Benoit MD Hypercholesteremia (Primary Dx); Coronary artery disease involving moapa heart with angina pectoris, unspecified vessel or lesion type ([facility]); Primary hypertension from Last 3 Months Immunizations Name Administration Dates Next Due Influenza Quadravalent, MDCK , 0.5ml, preservative free (Flucelvax) 6mo and older 11/25/2021,10/25/2019 Influenza trivalent, 0.5mL, preservative free (Fluarix; FluLaval; Fluzone) ages 6mo and older (Afluria) 3 years and older 03/03/2013 Moderna SARS-CoV-2 COVID-19, mRNA, LNP-S, preservative free 01/30/2021,06/12/2020 Pneumococcal polysaccharide 23 valent (Pneumovax 23) 2yo and older 09/18/2016 Tdap Tetanus diptheria acell ular pertussis (Boostrix; Adacel) 7yo and older 03/03/2013 Surgical History Surgery Date Site/Laterality Comments APPENDECTOMY PROCEDURE: HISTORICAL APPENDECTOMY COLONOSCOPY 03/23/2015 PROCEDURE: HISTORICAL COLONOSCOPY; COMMENT: Colon polyps x 2: 5 mm and 10 mm serrated adenomas, both in the ascending colon. COLONOSCOPY 03/20/2020 PROCEDURE: HISTORICAL COLONOSCOPY; COMMENT: Solitary 4 mm ascending colon polyp: tubular adenoma. next exam in 7 years. Medical History Medical History Date Comments Tobacco use disorder 04/07/2005 DX:Tobacco use disorder Adjustment disorder with depressed mood 12/08/19 15 DX:Adjustment disorder with depressed mood Asthma 04/07/2005 DX:Asthma Hypertension 07/17/2017 DX:Hypertension Generalized anxiety disorder 12/07/2014 DX: Generalized anxiety disorder Narcotic dependence, in bryce ssion ([facility]) 01/10/2011 DX:Narcotic dependence, in remission ([facility]) Opiate withdrawal ([facility]) 01/18/2014 DX:O piate withdrawal (HCC) Substance abuse ([facility]) 08/17/2015 DX:Sub stance abuse ([facility]) Hypercholesteremia 07/17/2017 DX:Hyperchole steremia ED (erectile dysfunction) 04/07/2005 DX:ED (erectile dysfunction) History of non-ST elevation myocardial infarction (NSTEMI) 07/27/2012 DX:History of non-ST elevati on myocardial infarction (NSTEMI); COMMENT: With PCI 2012 Renal cell cancer ([facility]) 07/17/2017 DX:R enal cell cancer ([facility]); COMMENT: Diagnosed incidentially 06/2016. S/p left nephrectomy, IVC thrombectomy at [facility] for vena cava involvement without metastatsis. Follows with [facility] Surveillance CT scan from June 2018 did not show any evidence of recurrence or metastatic disease Family History Medical History Relation Name Comments Other: in good health Father a t 65 oral cancer Other: in good health Mother Alzrichmond cazares's, 85 Lung cancer Sister 1 Blindness Neg Hx Cataracts Neg Hx Colon cancer Neg Hx Glaucoma Neg Hx Macular degeneration Neg Hx Strabismus Neg Hx Relation Name Status Comments Brother 1 Alive etoh Brother 2 Alive Father (Age 62) eso cancer Mother dementia Sister 1 (Age 56) lung cance r Sister 2 Alive Social History Tobacco Use Types Packs/Day Years Used Date Smoking Tobacco: Former Cigarettes 1 36.8 0 07/11/1981 - 05/02/2018 Smokeless Tobacco: Current Tobacco Cessation:Ready to Q uit: Not Asked; Counseling Given: Not Answered Comments:Vaping daily Alcohol Use Standard Drinks/Week Comments No 0 (1 standard drink = 0.6 oz pur e alcohol) Sex and Gender Information Value Date Recorded Sex Assigned at Not on file Legal Sex Male 4:03 PM EST Gender Identity Not on file Sexual Orientation Not on file Obstetrics History Last Filed Vital Signs Vital Sign Reading Time Taken Comments Blood Pressure 148/98 03/10/2024 11:13 AM EST Pulse 56 03/10/2024 11:13 AM EST Temperature - - Respiratory Rate - - Oxygen Saturation 97% 03/10/2024 11:13 AM EST Inhaled Oxygen Concentration - - Weight 88.9 kg (196 lb) 03/10/2024 11:13 AM EST Height 180.3 cm (5' 11 ) 03/10/2024 11:13 AM EST Body Mass Index 27.34 03/10/2024 11:13 AM EST Plan of Treatment Upcoming Encounters Date Type Department Care Team (Late st Contact Info) Description 06/28/2024 1:15 PM EDT Office Visit Adult Medicine [facility] [place] [address] [place] [phone] Cisco Wright MD [address] [place] [id number] Health Maintenance Due Date Last Done Comments Zoster Vaccines (1 of 2) 07/11/1982 Pneumococcal Vaccine: 50+ Years (2 of 2 - PCV) 09/18/2017 09/18/2016 Pneumococcal Vaccine: Pediatrics (0 to 5 Years) and At-Risk Patients (6 to 64 Years) (2 of 2 - PCV) 09/18/2017 09/18/2016 Colorectal Cancer Screening: Colonoscopy 02/01/2022 Depression Screening 02/01/2022 HIV Screening 02/01/2022 Lung Cancer Screening (Low Dose CT) 02/01/2022 Social Influencers of Health Screening 02/01/2022 DTaP,Tdap,and Td Vaccines (2 - Td or Tdap) 03/03/2023 03/03/2013 RSV Immunization Patients 60 + Years Old (1 - Risk 60-74 years 1-dose series) 2023 COVID-19 Vaccine (4 - 2023-2 5 season) 2023 01/30/2021, 06/12/2020, 05/14/2020 Influenza Vaccine (#1) 2023 , 10/25/2019, 03/03/2013 Hypertension/CHF/CAD Annual BMP Blood Test 12/17/2024 12/18/2023, 12/18/2023 Cholesterol Screening (Lipid Panel) 12/17/2028 12/18/2023, 12/18/2023 Hepatitis C Screening Completed 03/03/2013 HIB Vaccines Aged Out No longer eligi ble based on patient's age to complete this topic HPV Vaccines Aged Out No longer eligi ble based on patient's age to complete this topic Hepatitis A Vaccines Aged Out No long er eligible based on patient's age to complete this topic Hepatitis B Vaccines Aged Out No long er eligible based on patient's age to complete this topic IPV Vaccines Aged Out No longer eligi ble based on patient's age to complete this topic MMR Vaccines Aged Out No longer eligi ble based on patient's age to complete this topic Meningococcal ACWY Vaccine Aged Out N o longer eligible based on patient's age to complete this topic Meningococcal B Vacine Aged Out No lo nger eligible based on patient's age to complete this topic RSV Immunization Patients Under 20 months Aged Out No longer eligible b ased on patient's age to complete this topic Varicella Vaccines Aged Out No longer eligible based on patient's age to complete this topic Procedures Procedure Name Priority Date/Time Associated Diagnosis Comments ECG 12-LEAD Routine 03/10/2024 11:19 AM EST Coronary artery disease involving moapa heart with angina pectoris, unspecified vessel or lesion type (CMS/HCC) ANNUAL BMP BLOOD TEST Routine 12/18/2023 LIPID PANEL Routine 12/18/2023 HEPATITIS C SCREENING Routine 03/03/2013 from Last 3 Months or Most Recently Relevant to Health Maintenance Results * ECG 12 lead (03/10/2024 11:19 AM EST) Ventricular Rate ECG 56 BPM GEMUSE Atrial Rate 56 BPM GEMUSE P-R Interval 194 ms GEMUSE QRS Duration 102 ms GEMUSE Q-T Interval 396 ms GEMUSE QTc 382 ms GEMUSE P Wave Castell 66 degrees GEMUSE R Castell 55 degrees GEMUSE T Castell 67 degrees GEMUSE ECG Interpretation Sinus bradycardia with occasional Premature ventricular complexes Possible Inferior ??myocardial infarction , age undetermined When compared with ECG of 12-APR-2016 12:09, Premature ventricular complexes are now Present Confirmed by ELISE BENOIT ([id number]) on 03/10/2024 5:51:13 PM GEMUSE 03/10/2024 11:1 9 AM EST 03/10/2024 5:51 PM EST Elise Benoit MD ECG ORDERABLES Final Result GEMUSE * Annual BMP Blood Test (12/18/2023) Pathologist [facility] Annual BMP Blood Test abstracted Historical Provider HEALTH MAINTENANCE Final Result * Lipid panel (12/18/2023) [facility] LDL/HDL Ratio 2 0 - 4 Triglycerides 73 0 - 150 mg/dL Cholesterol 131 0 - 200 mg/dL HDL 54 >=40 mg/dL LDL Cholesterol 63 0 - 100 mg/dL Blood Venous blood specimen / Unknown Historical Provider LAB BLOOD ORDERABLES Marlyn l Result * Hepatitis C Screening (03/03/2013) [facility] Hepatitis C Screening abstracted Historical Provider HEALTH MAINTENANCE Final Result from Last 3 Months or Most Recently Relevant to Health Maintenance Insurance [facility] Advance Directives Documents on File Type Date Recorded Patient Nuclear Medicine Supervisor Expl anation Power of Paint Mixer Hand 03/10/2024 10:49 AM Care Teams Electronic Heat Seal Operator Relationship Specialty Start Date End Date Cisco Wright MD [address] [place] [address] [phone] PCP - General Internal Medicine 03/08/24
--- OUTSIDE RECORDS SUMMARY | 2024-04-12 12:40 | XMS_ITS | Encounter Summary ---
Author Organization [facility] Address [address] [place] [address] Care Team Providers Care Jewel Inserter Name Role Phone Cisco Wright MD Primary Care Provider [phone] Reason for Visit * Reason Comments Follow-up * Consultation (Routine) - Authorized Specialty Diagnoses / Procedures Referred By Contac t Referred To Contact Cardiology Diagnoses Coronary artery disease with angina pectoris, unspecified vessel or lesion type, unspecified whether [place] or transplanted heart (CMS/HCC) Cisco Wright MD [address] [place] [id number] Phone: tel: fax: [facility] [address] [address] Phone: tel: fax: Referral ID Status Reason Start Date Expiration Date Visits Requested Visits Authorized [id number] Authorized Specialty Services Required 03/10/2024 03/10/2025 12 12 Encounter Details Date Type Department Care Team (Latest Contact Info) Description 03/10/2024 10:50 AM EST Office Visit [facility] [address] [phone] Elise Benoit MD [address] [place] [address] Hypercholesteremia (Primary Dx); Coronary artery disease involving [place] heart with angina pectoris, unspecified vessel or lesion type (CMS/HCC); Primary hypertension Social History Tobacco Use Types Packs/Day Years [...] on file Sexual Orientation Not on file documented as of this encounter Last Filed Vital Signs Vital Sign Reading [...] Mass Index 27.34 03/10/2024 11:13 AM EST documented in this encounter Ordered Prescriptions Prescription Sig Dispense Quantity Refills Last Filled Start Date End Date albuterol HFA (PROAIR HFA ; PROVENTIL HFA ; VENTOLIN HFA) 90 mcg/actuation inhaler Inhale 2 puffs by mouth every 6 (six) hours if needed for wheezing (coughing). 6.7 g 2 03/10/2024 metoprolol succinate (Toprol XL) 100 mg 24 hr tablet Take 1 tablet (100 mg total) by mouth 1 (one) time each day. Do not crush or chew. 90 each 3 03/10/2024 atorvastatin (LIPITOR) 80 mg tablet Take 1 tablet (80 mg total) by mouth at bedtime. 90 tablet 3 03/10/2024 documented in this encounter Progress Notes * Elise Benoit MD - 03/31/2024 1:22 PM ESTAssociated Problem(s): Hypertension Suboptimally controlled on today's visit. Recommended home blood pressure checks. Recommend low-sodium diet. Continue current lisinopril and metoprolol for now. * Elise Benoit MD - 03/31/2024 1:20 PM ESTAssociated Problem(s): Hypercholesteremia Continue high-dose statin. Last lipid profile showed excellently controlled lipids. * Elise Benoit MD - 03/31/2024 1:20 PM ESTAssociated Problem(s): Coronary artery disease involving [place] coronary artery of [place] heart without angina pectoris No recurrent anginal symptoms. The atypical symptoms he is experiencing do not sound cardiac in nature. He maintains an excellent functional capacity. Continue high-dose statin, aspirin, metoprolol at current dose. * Elise Benoit MD - 03/10/2024 10:50 AM EST [facility] PCP: Cisco Wright MD BACKGROUND CARDIAC HISTORY: Ignacio Grant is a 58 y.o. old male who presents for cardiac follow-up of the following cardiovascular issues: 1. Coronary artery disease-status post drug-eluting stent to the mid circumflex for non-ST elevation [place] in 2011 2. Atypical chest pain 3. Hypertension 4. Hyperlipidemia He also has a history of renal cell carcinoma-status post radical nephrectomy, followed regularly by urology, anxiety and depression, history of substance abuse on Suboxone, asthma. I have obtained verbal consent from Ignacio Grant prior to the recording. I have advised Ignacio Grant that he may refuse the recording and require the recording to be turned off at any time during this encounter. History of Present Illness The patient is a 58-year-old male who presents for a heart follow-up. He reports no prolonged chest pain but experiences intermittent aches and pains. He has never required nitroglycerin for chest pain. He has not experienced any significant shortness of breath but feels his lung capacity is insufficient. He maintains an active lifestyle, running 2 to 3 miles daily and engaging in other physical activities for 45 minutes to an hour, 5 days a week. He does not experi ence shortness of breath during these activities. He uses an inhaler as needed, which provides relief. His symptoms are more pronounced during the spring and summer seasons. He believes his symptoms may be anxiety-related, as they are more severe when he is stressed. He has been prescribed hydroxyzine by Dr. Wright, which he takes as needed, but it does not seem to alleviate his symptoms. He has a history of smoking for 40 years and currently vapes. He has noticed an increase in his blood pressure recently, although it was previously well- controlled at 120/80. He has been vaping more frequentlylately. He has been on metoprolol for the past 10 years but often forgets to take the second dose. He has some medication left and will continue to take it twice a day. He has been sober from hard drugs for the past 7 years and is currently on Suboxone. He has been using gummies for sleep and has not consumed alcohol or smoked for the past 7 years. He has been eating better,, consuming less than 1000 calories a day. He has not lost any weight since starting his workout regimen. He has been pract icing intermittent fasting, consuming only dinner and occasionally breakfast or lunch. He does not consume soda. He has a history of myocardial infarction in 2012, which occurred while he was sober, and another cardiac event in 2017, which was associated with heroin use. SOCIAL HISTORY The patient admits to vaping and using cannabis gummies but has not used hard drugs for the past 7 years. He does not drink alcohol. MEDICATIONS Current: metoprolol, atorvastatin, albuterol, hydroxyzine ACTIVE MEDICATIONS: Current Outpatient Medications Medication Instructions albuterol HFA (PROAIR HFA ; PROVENTIL HFA ; VENTOLIN HFA) 90 mcg/actuation inhaler 2 puffs, inhalation, Every 6 hours PRN aspirin 81 mg, oral, Daily atorvastatin (LIPITOR) 80 mg, oral, Nightly buprenorphine-naloxone (SUBOXONE) 2-0.[address] 1 mg of opioid under the tongue daily. hydrOXYzine HCL (ATARAX) 25 mg, oral, 3 times daily PRN, for anxiety lisinopriL (PRINIVIL,ZESTRIL) 10 mg tablet 1 tablet, oral, Daily metoprolol succinate (TOPROL XL) 100 mg, oral, Daily, Do not crush or chew. nitroglycerin (NITROSTAT) 0.4 mg SL tablet 1 tablet, sublingual, Every 5 min PRN sildenafil (REVATIO) 20 mg tablet TAKE 1 TABLET BY MOUTH ONCE DAILY NEEDED FOR SEXUAL ACTIVITY FOR 30 DAYS PAST MEDICAL HISTORY: Patient Active Problem List Diagnosis History of non-ST elevation myocardial infarction (NSTEMI) Hypertension Hypercholesteremia Renal cell cancer (CMS/HCC) ED (erectile dysfunction) Opiate withdrawal (CMS/HCC) Anxiety and depression Substance abuse (CMS/HCC) Asthma Coronary artery disease involving [place] coronary artery of [place] heart without angina pectoris ALLERGIES: No Known Allergies SOCIAL HISTORY: Social History Tobacco Use Smoking status: Former Current packs/day: 0.00 Average packs/day: 1 pack/day for 36.8 years (36.8 ttl pk-yrs) Types: Cigarettes Start date: 07/11/1981 Quit date: 05/02/2018 Years since quittin.9 Smokeless tobacco: Current Tobacco comments: Vaping daily Substance Use Topics Alcohol use: No PHYSICAL EXAM: Vitals: 03/10/24 1113 BP: (!) 148/98 BP Location: Right arm Patient Position: Sitting BP Cuff Size: Adult Pulse: 56 SpO2: 97% Weight: 88.9 kg (196 lb) Height: 1.803 m (71 ) Body mass index is 27.34 kg/m??. APPEARANCE: Alert and in no acute distress EYES: PERRL, conjunctiva and sclera normal NECK: Neck supple, no JVD, 2+ carotid pulses without bruits. HEART: RRR with normal S1 and S2 ,no murmurs, no gallops LUNG: No respiratory distress or accessory muscle use, clear to auscultation bilaterally EXTREMITIES: Extremities warm and well perfused without clubbing, cyanosis, or edema NEURO: Awake, alert and oriented x 3, Cranial nerves II-XII grossly intact SKIN: Skin color, texture, turgor normal. No obvious rashes or lesions. PSYCH: Mood and affect appropriate, answers questions appropriately and is cooperative with exam MSK: Moves all extremities normally, gait is normal EKG: Encounter Date: 03/10/24 ECG 12 lead Result Value Ventricular Rate ECG 56 Atrial Rate 56 P-R Interval 194 QRS Duration 102 Q-T Interval 396 QTc 382 P Wave Kiron 66 R Kiron 55 T Kiron 67 ECG Interpretation Sinus bradycardia with occasional Premature ventricular complexes Possible Inferior myocardial infarction , age undetermined When compared with ECG of 12-APR-2016 12:09, Premature ventricular complexes are now Present Confirmed by ELISE BENOIT ([id number]) on 03/10/2024 5:51:13 PM *Note: Due to a large number of results and/or encounters for the requested time period, some results have not been displayed. A complete set of results can be found in Results Review. TESTING: No results found for: GLUCOSE , CALCIUM , NA , K , CO2 , CL , BUN , CREATININE No results found for: WBC , HGB , HCT , MCV , PLT Lab Results Component Value Date CHOL 131 12/18/2023 Lab Results Component Value Date HDL 54 12/18/2023 No results found for: LDLCALC Lab Results Component Value Date TRIG 73 12/18/2023 No results found for: CHOLHDL 58 y.o. male who presents for cardiac follow-up of the below mentioned issues. All in all he is doing well from a cardiac standpoint. Please see problem specific recommendations below. I have given him a supply of an albuterol inhaler to take as needed for seasonal asthma symptoms. Further refills should be directed to his PCP however. Problem List Items Addressed This Visit Hypertension Suboptimally controlled on today's visit. Recommended home blood pressure checks. Recommend low-sodium diet. Continue current lisinopril and metoprolol for now. Relevant Medications metoprolol succinate (Toprol XL) 100 mg 24 hr tablet Hypercholesteremia - Primary Continue high-dose statin. Last lipid profile showed excellently controlled lipids. Relevant Medications atorvastatin (LIPITOR) 80 mg tablet Coronary artery disease involving [place] coronary artery of [place] heart without angina pectoris No recurrent anginal symptoms. The atypical symptoms he is experiencing do not sound cardiac in nature. He maintains an excellent functional capacity. Continue high-dose statin, aspirin, metoprolol at current dose. Relevant Medications atorvastatin (LIPITOR) 80 mg tablet metoprolol succinate (Toprol XL) 100 mg 24 hr tablet Follow up in about 1 year (around 03/10/2025). Thank you for allowing us to participate in the care of this patient. CC: Cisco Wright MD The [facility] team will continue to co-manage this patient following the plan of care as established by my initial visit and as per AHA guidelines for ongoing management and surveillance of above-mentionedissues. . This will include medication titration, initiation of appropriate medications and further titration, and diagnostic studies to manage this disease process. This note was dictated using voice recognition software. Please pardon any grammatical or syntax errors. documented in this encounter Plan of Treatment Upcoming Encounters Date Type Department Care Team (Late st Contact Info) Description 06/28/2024 1:15 PM EDT Office Visit Adult Medicine [facility] [address] [place] [phone] Cisco Wright MD [address] [place] [id number] documented as of this encounter Procedures Procedure Name Priority Date/Time Associated Diagnosis Comments ECG 12-LEAD Routine 03/10/2024 11:19 AM EST Coronary artery disease involving [place] heart with angina pectoris, unspecified vessel or lesion type ([facility]) documented in this encounter Results * ECG 12 lead (03/10/2024 11:19 AM EST) Ventricular Rate ECG 56 BPM GEMUSE Atrial Rate 56 BPM GEMUSE P-R Interval 194 ms GEMUSE QRS Duration 102 ms GEMUSE Q-T Interval 396 ms GEMUSE QTc 382 ms GEMUSE P Wave Kiron 66 degrees GEMUSE R Kiron 55 degrees GEMUSE T Kiron 67 degrees GEMUSE ECG Interpretation Sinus bradycardia with occasional Premature ventricular complexes Possible Inferior ??myocardial infarction , age undetermined When compared with ECG of 12-APR-2016 12:09, Premature ventricular complexes are now Present Confirmed by ELISE BENOIT ([id number]) on 03/10/2024 5:51:13 PM GEMUSE 03/10/2024 11:1 9 AM EST 03/10/2024 5:51 PM EST us Elise Benoit MD ECG ORDERABLES Final Result GEMUSE documented in this encounter Visit Diagnoses Diagnosis Hypercholesteremia- Primary Pure hypercholesterolemia Coronary artery disease involving [place] heart with angina pectoris, unspecified vessel or lesion type (CMS/HCC) Primary hypertension Unspecified essential hypertension documented in this encounter Discontinued Medications Medication Sig Discontinue Reason Start Date End Da te metoprolol tartrate (LOPRESSOR) 50 mg tablet Take 1 tablet (50 mg total) by mouth 2 (two) times a day. Formulary change 12/22/2023 03/10/2024 atorvastatin (LIPITOR) 80 mg tablet Take 1 tablet (80 mg total) by mouth at bedtime. Reorder 12/22/2023 03/10/2024 albuterol HFA (PROAIR HFA ; PROVENTIL HFA ; VENTOLIN HFA) 90 mcg/actuation inhaler every 6 (six) hours if needed for wheezing (coughing). Reorder 10/14/2021 03/10/2024 documented as of this encounter Orders Outpatient Referral Count Last Ordered Date Fir st Ordered Date AMB REFERRAL TO CARDIOLOGY 1 03/10/2024 documented in this encounter Care Teams Jewel Inserter Relationship Specialty Start Date End Date Cisco Wright MD [address] [place] [id number] PCP - General Internal Medicine 03/08/24 documented as of this encounter
== END 2024-04-12 11:23 | disposition home or self-care (01) ==
LOC: HO.US 11:22
PROVIDERS: PCP Internal Medicine; Visit Provider Urology
DX: C64.9 Malignant neoplasm of unspecified kidney, except renal pelvis (principal)
CPT/HCPCS: 76775

== ENCOUNTER → 2024-04-12 11:24 | Outpatient (BNV) | payer BC, SELFPAY | PROVIDERS: PCP Internal Medicine; Visit Provider Radiology Vascular & Interventional Radiology | DX: Q60.0 Renal agenesis, unilateral (principal) | CPT/HCPCS: 76775 ==

== ENCOUNTER 2024-04-22 10:43 | Outpatient (AMB) | payer BC, SELFPAY ==
--- NOTE | 2024-04-22 10:44 | A.OFFVIS_ITS ---
Intake Visit Reasons: 1Y Ultrasound(Set) Intake Note: Pt presents to the office as a telehealth appt for a 1 year follow up ultrasound. Allergies No Known Allergies Allergy (Verified 04/22/24 10:44) HPI Comments Details: Ignacio is a very pleasant male. He has a patient of Dr. Wright. He has the following urologic issues - renal cancer - erectile dysfunction Telemedicine Evaluation 15 min Consultation Doximity Barrie Video Eight years from resection - continue surveillance with abdominal and chest CT at 7 and 9 years Renal ultrasound normal Plan abdominal and chest CT next year Refill Viagra - [employer] Renal cancer T3 kidney 09/2016 left nephrectomy with neoadjuvant chemotherapy oral They present for continued followup and management, left side, renal cancer. The renal mass was diagnosed incidentally, during evaluation for, GI symptoms 07/09 at [facility] Imaging included 07/09 , a CT (computed tomography) scan of the abdomen/pelvis, an MRI of the abdomen - 11 cm x 15 cm x 11 cm mass on the left kidney. Left renal vein with extension across to IVC. No evidence of extension up IVC. Shoddy nodes around the kidney, central area with stellate scarring. 07/09 , an MRI of the abdomen - similar. NAD Chest and head CT 12/09 , a CT (computed tomography) scan of the abdomen/pelvis, no recurrence 07/10 - NAD Renal US 01/10 - CT Abdo ok, chest - suggest f/u in 3m 07/11 CT Abdo and chest both clear. 01/11 , a renal ultrasound, NAD, CXR NAD. - CT Abdo and chest. Clear. Does have noted 0.8 cm and hemangioma and liver - 12/12 CT scan normal - 07/13 renal ultrasound no abnormality detected, 07/14 renal ultrasound normal, 02/13 renal ultrasound right kidney normal, 02/15 renal ultrasound known Prior treatment(s) included 10/09 left , nephrectomy, IVC thrombectomy Dr Radha Cali. Staging of initial cancer 10/09 T3, , with vena cava involvement, without metastasis. The diagnosis was renal cell carcinoma, Grade III Erectile dysfunction Response to on demand sildenafil [facility] Medical History Hyperlipidemia Accelerated hypertension Erectile dysfunction Renal cancer Surgical History History of surgery Review of Systems Const All systems reviewed & are unremarkable except as noted in HPI and below Reports no additional complaints Resp Reports no additional complaints GI Reports no additional complaints Reports as per HPI Musc Reports no additional complaints Physical Exam Telemedicine evaluation Appropriate responses Regular breathing rate and rhythm HEENT Head: Yes normal to inspection Ears: hearing grossly normal bilaterally Eyes General: appearance normal, both eyes and all related structures Neck Neck: Yes normal visual inspection Chest Chest palpation & inspection: normal inspection of the chest Resp Effort & Inspection: normal respiratory effort and able to speak in complete sentences Telehealth Telehealth Telehealth Platform: [employer] Location of provider rendering services: practice address Location of patient: address on file Patient Identification confirmed using: Name, : Yes Telehealth method: video Patient verbally consented to treatment: Yes Patient verbally consented to billing insurance company: Yes Patient informed of any privacy concerns related to visit: Yes Assessment & Plan Assessment & Plan (1) Renal cancer: Code(s): C64.9 - Malignant neoplasm of unspecified kidney, except renal pelvis Category: Medical (2) Erectile dysfunction due to arterial insufficiency: Code(s): N52.01 - Erectile dysfunction due to arterial insufficiency Category: Medical Plan One year follow-up imaging Orders: Orders CT abdomen wo/w IV con 1 Year C64.9 - Malignant neoplasm of unspecified kidney, except renal pelvis CT chest wo IV con 1 Year C64.9 - Malignant neoplasm of unspecified kidney, except renal pelvis Patient Instructions: This note is constructed using voice recognition software. While every effort has been made to ensure accuracy store stock help errors may have been included. Imaging studies, laboratory and physical exam results were discussed and reviewed in detail. No major barriers to patient understanding were identified. An opportunity to ask questions regarding the treatment plan was provided. All questions were answered. The patient expressed understanding and agreement with the above treatment plan. The patient is aware they should contact our office by phone for worsening of their current condition or the appearance of new urologic symptoms. Compliance is encouraged with any medications and followup testing that is ordered. It is a privilege to participate in the urologic care of your patient. If you have any questions or concerns regarding treatment for the above conditions, or other urologic issues, please do not hesitate to contact me. The office telephone contact is [phone]. Sincerely, Dr Amador Villegas MD, [facility] - Urology Compassionate Specialist Care for the Genitourinary System Coding Level of Care Code Tele Est Pt Level 4 (58276) Complex EM visit Add On G2211 Diagnoses Renal cancer C64.9 Erectile dysfunction due to arterial insufficiency N52.01
--- OUTSIDE RECORDS SUMMARY | 2024-04-22 12:17 | XMS_ITS | Clinical Summary ---
Author Organization [facility] Address [address] [place] [address] Phone Care Team Providers Care Sports Umpire Name Role Phone Cisco Wright MD Primary Care Provider [phone] Allergies No known active allergies Medications lisinopriL [...] Diagnosed Date Coronary artery disease invo lving quile[place] coronary artery of [place] heart without angina pectoris 03/31/2024 Overview (03/31/2024): [...] in 2016 when the patient presented to [facility] with a non-ST elevation OH that was ultimately thought to be a type II demand mediated OH; cath showed no obstructive coronary disease-interestingly there is no report documented of this cath in the [facility] record but I was able [...] 06/2016. S/p left nephrectomy, IVC thrombectomy at [email or web address] for vena cava involvement without metastatsis. Follows with [facility] Surveillance CT scan from June 2018 did [...] Description 03/10/2024 10:50 AM EST Office Visit [facility] [address] [place] [address] Elise Benoit MD Hypercholesteremia (Primary Dx); Coronary artery disease involving [place] heart with angina pectoris, unspecified vessel or lesion type ([facility]); Primary hypertension from Last 3 [...] anxiety disorder Narcotic dependence, in bryce ssion ([facility]) 01/10/2011 DX:Narcotic dependence, in remission ([facility]) Opiate withdrawal ([facility]) 01/18/2014 DX:O piate withdrawal (HCC) Substance abuse ([facility]) 08/17/2015 DX:Sub stance abuse ([facility]) Hypercholesteremia 07/17/2017 DX:Hyperchole steremia ED (erectile dysfunction) 04/07/2005 DX:ED (erectile dysfunction) History of non-ST elevation myocardial infarction (NSTEMI) 07/27/2012 DX:History of non-ST elevati on myocardial infarction (NSTEMI); COMMENT: With PCI 2012 Renal cell cancer ([facility]) 07/17/2017 DX:R enal cell cancer ([facility]); COMMENT: Diagnosed incidentially 06/2016. S/p left nephrectomy, IVC thrombectomy at [facility] [[email or web address] for vena cava involvement without metastatsis. Follows with [facility] Surveillance CT scan from June 2018 did [...] 1:15 PM EDT Office Visit Adult Medicine [facility] [address] [place] [id number] Cisco Wright MD [address] [place] [id number] Health Maintenance Due Date Last Done Comments [...] Procedure Name Priority Date/Time Associated Diagnosis Comments EXTERNAL ULTRASOUND REPORT 04/13/2024 EXTERNAL ULTRASOUND REPORT 04/12/2024 ECG 12-LEAD Routine 03/10/2024 11:19 AM EST Coronary artery disease involving [place] heart with angina pectoris, unspecified vessel or lesion type (CMS/HCC) ANNUAL BMP BLOOD TEST Routine 12/18/2023 LIPID PANEL Routine 12/18/2023 HEPATITIS C SCREENING Routine 03/03/2013 from Last 3 Months or Most Recently Relevant to Health Maintenance Results * External Ultrasound Report (04/13/2024) Only the most recent of2 resultswithin the time period is included. Anatomical Region Laterality Modality Ultrasound us Provider Onbase MD JOLLY US PROCEDURES Final Resul t * ECG 12 lead (03/10/2024 11:19 AM EST) Ventricular Rate ECG 56 BPM GEMUSE Atrial Rate 56 BPM GEMUSE P-R Interval 194 ms GEMUSE QRS Duration 102 ms GEMUSE Q-T Interval 396 ms GEMUSE QTc 382 ms GEMUSE P Wave [place] 66 degrees GEMUSE R [place] 55 degrees GEMUSE T [place] 67 degrees GEMUSE ECG Interpretation Sinus bradycardia [...] * Annual BMP Blood Test (12/18/2023) [facility]ologist [facility] Annual BMP Blood Test abstracted Result [facility] Historical Provider HEALTH MAINTENANCE Final Result * Lipid panel (12/18/2023) Pathologist [facility] LDL/HDL Ratio 2 0 - 4 Triglycerides 73 0 - 150 mg/dL Cholesterol 131 0 - 200 mg/dL HDL 54 >=40 mg/dL LDL Cholesterol 63 0 - 100 mg/dL Blood Venous blood specimen / Unknown Result [facility] Historical Provider LAB BLOOD ORDERABLES Marlyn l Result * Hepatitis C Screening (03/03/2013) Pathologist [facility] Hepatitis C Screening abstracted Historical Provider HEALTH MAINTENANCE Final Result from Last 3 Months or Most Recently Relevant to Health Maintenance Insurance [facility] Advance Directives Documents on File Type Date Recorded Patient Upsetter Expl anation Power of Private Branch Exchange Service Advisor 03/10/2024 10:49 AM Care Teams Sports Umpire Relationship Specialty Start Date End Date Cisco Wright MD [address] [place] [phone] PCP - General Internal Medicine 03/08/24
--- OUTSIDE RECORDS SUMMARY | 2024-04-22 12:17 | XMS_ITS | Encounter Summary ---
Author Organization [facility] Address [address] [place] [address] Care Team Providers Care Document Controller Name Role Phone Cisco Wright MD Primary Care Provider Reason for Visit * Reason Comments Follow-up * Consultation (Routine) - Authorized Specialty Diagnoses / Procedures Referred By Contac t Referred To Contact Cardiology Diagnoses Coronary artery disease with angina pectoris, unspecified vessel or lesion type, unspecified whether [place] or transplanted heart (CMS/HCC) Cisco Wright MD [address] [place] [phone] Phone: tel: fax: [facility] [address] [address] Phone: tel: fax: Referral ID Status Reason Start Date Expiration Date Visits Requested Visits Authorized [id number] Authorized Specialty Services Required 03/10/2024 03/10/2025 12 12 Encounter Details Date Type Department Care Team (Latest Contact Info) Description 03/10/2024 10:50 AM EST Office Visit [facility] [address] [address] Elise Benoit MD [address] [place] [address] Hypercholesteremia (Primary Dx); Coronary artery disease involving [place] heart with angina pectoris, unspecified vessel or [...] lisinopril and metoprolol for now. * Elise Benoti MD - 03/31/2024 1:20 PM ESTAssociated Problem(s): Hypercholesteremia Continue high-dose statin. Last lipid profile showed excellently controlled lipids. * Elise Benoit MD - 03/31/2024 1:20 PM ESTAssociated Problem(s): Coronary artery disease involving [place] coronary artery of [place] heart without angina pectoris No recurrent anginal symptoms. The atypical symptoms he is experiencing do not sound cardiac in nature. He maintains an excellent functional capacity. Continue high-dose statin, aspirin, metoprolol at current dose. * Elise Benoit MD - 03/10/2024 10:50 AM EST [facility] PCP: Cisco Wright MD BACKGROUND CARDIAC HISTORY: Ignacio Grant is a 58 y.o. old male who presents for cardiac follow-up of the following cardiovascular issues: 1. Coronary artery disease-status post drug-eluting stent to the mid circumflex for non-ST elevation [place] in 2011 2. Atypical chest pain 3. [...] abuse (CMS/HCC) Asthma Coronary artery disease involving [place] coronary artery of [place] heart without angina pectoris ALLERGIES: No Known [...] Q-T Interval 396 QTc 382 P Wave [place] 66 R [place] 55 T [place] 67 ECG Interpretation Sinus bradycardia with occasional [...] 80 mg tablet Coronary artery disease involving [place] coronary artery of [place] heart without angina pectoris No recurrent anginal [...] 1:15 PM EDT Office Visit Adult Medicine [facility] [address] [place] [phone] Cisco Wright MD [address] [place] [phone] documented as of this encounter Procedures Procedure Name Priority Date/Time Associated Diagnosis Comments ECG 12-LEAD Routine 03/10/2024 11:19 AM EST Coronary artery disease involving [place] heart with angina pectoris, unspecified vessel or lesion type ([facility]) documented in this encounter Results * ECG 12 lead (03/10/2024 11:19 AM EST) Ventricular Rate ECG 56 BPM GEMUSE Atrial Rate 56 BPM GEMUSE P-R Interval 194 ms GEMUSE QRS Duration 102 ms GEMUSE Q-T Interval 396 ms GEMUSE QTc 382 ms GEMUSE P Wave [place] 66 degrees GEMUSE R [place] 55 degrees GEMUSE T [place] 67 degrees GEMUSE ECG Interpretation Sinus bradycardia [...] Primary Pure hypercholesterolemia Coronary artery disease involving [place] heart with angina pectoris, unspecified vessel or [...] 03/10/2024 documented in this encounter Care Teams Document Controller Relationship Specialty Start Date End Date Cisco Wright MD [address] [place] [phone] PCP - General Internal Medicine 03/08/24 documented as of this encounter
== END 2024-04-22 11:44 | disposition home or self-care (01) ==
LOC: HO.HUSH 10:43
PROVIDERS: PCP Internal Medicine; Visit Provider Urology
DX: C64.9 Malignant neoplasm of unspecified kidney, except renal pelvis (principal); N52.01 Erectile dysfunction due to arterial insufficiency
CPT/HCPCS: 99214

== ENCOUNTER → 2024-04-22 10:43 | Outpatient (BNVA) | payer BC, SELFPAY | PROVIDERS: PCP Internal Medicine; Visit Provider Urology ==